=== PATIENT | female | born 1960 ===

== ENCOUNTER 2018-04-08 15:06 | Inpatient (IN) | payer OTHER ==
[~2018-04-08] VITALS: Ht 157.5 cm; Wt 60.8 kg
[2018-04-08] MEDS ORDERED: ZANTAC300 MG PO (15:56)
[2018-04-08] MEDS ORDERED: PREVACID30 MG PO (15:56)
[2018-04-29] MEDS ORDERED: ULTRACET PO (15:51)
[2018-04-29] MEDS ORDERED: ALLEGRA-D 12 H1 EACH PO (15:51)
== END 2018-04-20 09:33 | disposition home or self-care (01) | DRG 331 ==
LOC: O/R 04-17 05:30 → SURG 04-17 05:30
PROVIDERS: Colon & Rectal Surgery
PROC: 07TC4ZZ Resection of Pelvis Lymphatic, Percutaneous Endoscopic Approach (ICD-10-PCS; 2018-04-17)
PROC: 0DTU4ZZ Resection of Omentum, Percutaneous Endoscopic Approach (ICD-10-PCS; 2018-04-17)
PROC: 0UT64ZZ Resection of Left Fallopian Tube, Percutaneous Endoscopic Approach (ICD-10-PCS; 2018-04-17)
PROC: 0UT14ZZ Resection of Left Ovary, Percutaneous Endoscopic Approach (ICD-10-PCS; 2018-04-17)
PROC: 0DJD8ZZ Inspection of Lower Intestinal Tract, Via Natural or Artificial Opening Endoscopic (ICD-10-PCS; 2018-04-17)
PROC: 0DTN4ZZ Resection of Sigmoid Colon, Percutaneous Endoscopic Approach (ICD-10-PCS; principal; 2018-04-17 07:00)
DX: C19 Malignant neoplasm of rectosigmoid junction (principal); R59.0 Localized enlarged lymph nodes; I10 Essential (primary) hypertension; D27.1 Benign neoplasm of left ovary

== ENCOUNTER 2018-04-10 10:00 | Day surgery (SDC) | payer OTHER ==
[~2018-04-10 10:00] MED LIST: PREVACID30 MG PO; ZANTAC300 MG PO
[2018-04-29] MEDS ORDERED: ALLEGRA-D 12 H1 EACH PO (15:51)
[2018-04-29] MEDS ORDERED: ULTRACET PO (15:51)
== END 2018-04-10 17:15 | disposition home or self-care (01) ==
LOC: AMB-ENDOS 10:00
DX: C19 Malignant neoplasm of rectosigmoid junction (principal)

== ENCOUNTER 2018-05-01 05:40 | Day surgery (SDC) | payer OTHER ==
[~2018-05-01 05:40] MED LIST changes: +ALLEGRA-D 12 H1 EACH PO; +ULTRACET PO
== END 2018-05-01 11:15 | disposition home or self-care (01) ==
LOC: CIR.AMB 05:40
DX: C20 Malignant neoplasm of rectum (principal)
CPT/HCPCS: 36561; C1751